=== PATIENT | male | born 1960 | race Hispanic/Latino ===

== ENCOUNTER 2020-04-15 09:46 | Emergency (ER) | payer SELFPAY ==
[2020-04-15] MEDS ORDERED: MECLIZINE HCL 12.5 MG TAB ONE (13:51)
[2020-04-15] MEDS ORDERED: ONDANSETRON 4 MG/2 ML VIAL ONE (13:51)
--- NOTE | 2020-04-15 14:02 | RAD REPORT ---
EXAM DESCRIPTION: CT - Head Brain Wo Cont - 04/15/2020 1:48 pm CLINICAL HISTORY: Dizziness COMPARISON: None. TECHNIQUE: Computed axial tomography of the head was obtained. IV contrast was not requested. All CT scans are performed using dose optimization technique as appropriate and may include automated exposure control or mA/KV adjustment according to patient size. FINDINGS: An intracranial bleed is not seen . The ventricles are normal in caliber. No extra-axial fluid collection is noted. Fluid within the sinuses/ mastoids is not seen. IMPRESSION: No acute intracranial abnormality is seen. If patient's symptoms persist MRI of the bra in would be recommended.
[2020-04-15 14:22] LABS: Absolute Lymphocytes (CBC) 1.2 K/uL (0.7-4.9); Basophils % 0.2 % (0-1.3); Hematocrit 46.2 % (39.6-49.0); Lymphocytes % 11.2 % (15.3-44.8); MPV 10.4 fL (7.6-11.3); RBC Red Blood Cell Count 5.14 M/uL (4.33-5.43)
[2020-04-15 14:25] LABS: Protime INR 0.92
[2020-04-15 14:52] LABS: ALT/SGPT 25 U/L (12-78); AST/SGOT 14 U/L (15-37); Albumin 3.7 g/dL (3.4-5.0); Alkaline Phosphatase 70 U/L (45-117); BUN Blood Urea Nitrogen 14 mg/dL (7-18); Bicarbonate 28 mmol/L (21-32); Bilirubin Direct 0.2 mg/dL (0-0.2); Bilirubin Total 0.6 mg/dL (0.2-1.0); Glucose Level 122 mg/dL (74-106); Magnesium 2.3 mg/dL (1.8-2.4); NT PRO-BNP 69 pg/mL (<125); Protein, Total 7.6 g/dL (6.4-8.2); Sodium Level 136 mmol/L (136-145); Troponin (Emerg Dept Use Only) < 0.02 ng/mL (0.0-0.045)
--- NOTE | 2020-04-15 15:50 | RAD REPORT ---
EXAM DESCRIPTION: RAD - Chest Single View - 04/15/2020 2:26 pm CLINICAL HISTORY: dizziness, hypertension, shortness of COMPARISON: None TECHNIQUE: AP portable chest image was obtained 04/15/2020 2:26 pm . FINDINGS: Lungs are clear. Heart and vasculature are normal. No measurable pleural effusion and no p neumothorax. No acute bony abnormality seen. No acute aortic findings suspected. Metal frames from th e patient's eye glasses overlie the lower left chest. IMPRESSION: No acute cardiopulmonary process.
[2020-04-15 17:21] LABS: Urine Blood NEGATIVE (NEG); Urine Glucose NEGATIVE (NEG); Urine Protein 1+ (NEG); Urine Specific Gravity >1.030 (1.005-1.030)
--- NOTE | 2020-04-15 19:00 | RAD REPORT ---
EXAM DESCRIPTION: MRI - Brain Wo Cont - 04/15/2020 6:45 pm CLINICAL HISTORY: dizziness COMPARISON: Head Brain Wo Cont dated 04/15/2020 TECHNIQUE: Sagittal T1-weighted images were obtained along with axial PD, heavily T2-weighted and T2 -FLAIR images. Axial DWI and ADC mapping sequences were also obtained along with coronal heavily T2-w eighted images. Coronal T2 hemo sequence obtained. FINDINGS: No intracranial acute hemorrhage, mass or acute infarction. There is no edema or shift of midline structures. No extra-axial fluid collections. Villa-matter/white matter junction is preserved. Signal voids are seen as a normal finding in the major intracranial vessels. Small focus of hypoint ense signal midline right frontal lobe on the T2 hemo sequence corresponds to small focus of calcium on the CT study. No sella or supra sella abnormality. No globe or orbital content abnormality seen. No significant atrophy or chronic ischemic changes identified. Mastoid air cells and paranasal sinuses are clear. IMPRESSION: No acute infarction changes seen. No acute intracranial finding identified.
--- NOTE | 2020-04-15 19:17 | EDPHYS ---
Physician Documentation [facility] Name: Elmer Abraham Age: 59 yrs Sex: Male : 1960 Arrival Date: 04/15/2020 Time: 09:49 Bed 24 Private MD: ED Physician Kavin Flaherty HPI: 04/15 13:30 This 59 yrs old Male presents to ER via Wheelchair with complaints of cp Dizziness, Nausea. 13:30 The patient presents with dizziness, sense of spinning. Onset: The symptoms/episode cp began/occurred yesterday. Context: occurred while the patient was sitting up from lying down. just prior to the episode the patient experienced no apparent symptoms. Associated signs and symptoms: Pertinent positives: nausea, vomiting, Pertinent negatives: abdominal pain, chest pain, diaphoresis, focal weakness, near-syncope, numbness, palpitations, syncope. Severity of symptoms: in the emergency department the symptoms have improved mildly. Patient's baseline: Neuro: alert and fully oriented, Motor: no deficits, Ambulation: walks without assistance, Speech: normal. Historical: - Allergies: 11:05 No Known Allergies; ca1 - PMHx: 11:05 Hypertension; ca1 - PSHx: 11:05 Hernia repair; ca1 - Immunization history:: Flu vaccine is not up to date. - Social history:: Smoking status: Patient denies any tobacco usage or history of. ROS: 13:35 Constitutional: Negative for body aches, chills, fever, poor PO intake. cp 13:35 Eyes: Negative for injury, pain, redness, and discharge. cp 13:35 ENT: Negative for ear pain, sinus pain, sore throat, difficulty swallowing, difficulty handling secretions. 13:35 Cardiovascular: Negative for chest pain, edema, palpitations. 13:35 Respiratory: Negative for cough, shortness of breath, wheezing. 13:35 Abdomen/GI: Positive for nausea and vomiting, Negative for abdominal pain, diarrhea, constipation, black/tarry stool, rectal bleeding. 13:35 : Negative for urinary symptoms. 13:35 Neuro: Positive for dizziness, Negative for altered mental status, headache, numbness, syncope, near syncope, weakness. 13:35 All other systems are negative. Exam: 13:38 Constitutional: The patient appears in no acute distress, alert, awake, cp non-diaphoretic, non-toxic, well developed, well nourished. 13:38 Head/Face: Normocephalic, atraumatic. cp 13:38 Eyes: Periorbital structures: appear normal, Pupils: equal, round, and reactive to light and accomodation, Extraocular movements: intact throughout, Conjunctiva: normal, no exudate, no injection, Sclera: no appreciated abnormality, Lids and lashes: appear normal, bilaterally. 13:38 ENT: External ear(s): are unremarkable, Ear canal(s): are normal, clear, TM's: dullness, bilaterally, Nose: is normal, Mouth: Lips: moist, Oral mucosa: moist, Posterior pharynx: is normal, airway is patent, no erythema, no exudate. 13:38 Neck: ROM/movement: is normal, is supple, without pain, no range of motions limitations. 13:38 Chest/axilla: Inspection: normal, Palpation: is normal, no crepitus, no tenderness. 13:38 Cardiovascular: Rate: normal, Rhythm: regular, Heart sounds: murmur, not appreciated, Edema: is not appreciated, JVD: is not appreciated. 13:38 Respiratory: the patient does not display signs of respiratory distress, Respirations: normal, no use of accessory muscles, no retractions, labored breathing, is not present, Breath sounds: are clear throughout, no decreased breath sounds, no stridor, no wheezing. 13:38 Abdomen/GI: Inspection: abdomen appears normal, Palpation: abdomen is soft and non-tender, in all quadrants. 13:38 Back: pain, is absent, ROM is normal. 13:38 Neuro: Orientation: to person, place \T\ time. Mentation: is normal, Cerebellar function: Romberg testing is negative, normal finger to nose testing, heel to mosley testing is normal, Motor: moves all fours, strength is normal, Sensation: no obvious gross deficits. 13:40 ECG was reviewed by the Attending Physician. cp Vital Signs: 11:01 BP 132 / 71; Pulse 76; Resp 16 S; Temp 97.7(TE); Pulse Ox 99% on R/A; Weight 88.45 kg ca1 (R); Height 5 ft. 5 in. (165.10 cm) (R); Pain 0/10; 13:05 BP 130 / 84; Pulse 83; Resp 16; Pulse Ox 100% on R/A; zb 13:52 BP 125 / 83 Supine; Pulse 72; sr5 13:52 BP 139 / 69 Sitting; Pulse 73; sr5 13:52 BP 154 / 69 Standing; Pulse 72; sr5 14:00 BP 130 / 48; Pulse 77; Resp 16; Pulse Ox 99% on R/A; zb 15:00 BP 101 / 55; Pulse 63; Resp 18; Pulse Ox 97% on R/A; zb 16:00 BP 106 / 56; Pulse 66; Resp 17; Pulse Ox 97% on R/A; tw2 17:00 BP 124 / 73; Pulse 68; Resp 16; Pulse Ox 100% on R/A; zb 18:00 BP 118 / 72; Pulse 64; Resp 18; Pulse Ox 98% ; zb 11:01 Body Mass Index 32.45 (88.45 kg, 165.10 cm) ca1 MDM: 13:13 Patient medically screened. cp 14:00 Differential diagnosis: cardiac arrhythmia, CVA, GI bleed, hypovolemia, idiopathic cp dizziness, TIA, vertigo. 19:15 Data reviewed: vital signs, nurses notes, lab test result(s), EKG, radiologic studies, cp CT scan, MRI, plain films. 19:15 Test interpretation: by ED physician or midlevel provider: ECG, plain radiologic cp studies. Counseling: I had a detailed discussion with the patient and/or guardian regarding: the historical points, exam findings, and any diagnostic results supporting the discharge/admit diagnosis, lab results, radiology results. Response to treatment: the patient's symptoms have markedly improved after treatment, VSS. Nausea and dizziness markedly improved with meds. Will discharge to home for continued monitoring. 04/15 13:13 Order name: Basic Metabolic Panel; Complete Time: 16:39 cp 04/15 13:13 Order name: CBC with Diff; Complete Time: 14:27 cp 04/15 14:27 Interpretation: Normal except: WBC 11.00; TAMMY% 85.6; LYM% 11.2; MN% 2.8; NEUT A 9.4. cp 04/15 13:13 Order name: LFT's; Complete Time: 16:39 cp 04/15 13:13 Order name: Magnesium; Complete Time: 16:39 cp 04/15 13:13 Order name: NT PRO-BNP; Complete Time: 16:39 cp 04/15 13:13 Order name: PT-INR; Complete Time: 16:39 cp 04/15 13:13 Order name: Troponin (emerg Dept Use Only); Complete Time: 16:39 cp 04/15 13:13 Order name: XRAY Chest (1 view); Complete Time: 16:39 cp 04/15 13:13 Order name: CT Head Brain wo Cont; Complete Time: 14:27 cp 04/15 14:19 Order name: Urine Dipstick--Ancillary (enter results) bd 04/15 17:21 Order name: Urine Dipstick-Ancillary; Complete Time: 18:38 EDMS 04/15 18:38 Interpretation: Normal except: USPGR >1.030; UPROT 1+. cp 04/15 19:01 Order name: MRI; Complete Time: 19:04 EDMS 04/15 19:05 Interpretation: Report reviewed. cp 04/15 13:13 Order name: EKG; Complete Time: 13:16 cp 04/15 13:13 Order name: Cardiac monitoring; Complete Time: 13:41 cp 04/15 13:13 Order name: EKG - Nurse/Tech; Complete Time: 13:41 cp 04/15 13:13 Order name: IV Saline Lock; Complete Time: 13:24 cp 04/15 13:13 Order name: Labs collected and sent; Complete Time: 13:24 cp 04/15 13:13 Order name: O2 Per Protocol; Complete Time: 13:24 cp 04/15 13:13 Order name: O2 Sat Monitoring; Complete Time: 13:24 cp 04/15 13:13 Order name: Orthostatics; Complete Time: 13:51 cp 04/15 13:13 Order name: Urine Dipstick-Ancillary (obtain specimen); Complete Time: 14:20 cp 04/15 13:57 Order name: Labs - recollect needed: ALL OF THEM!!!; Complete Time: 14:20 iw EC:40 Rate is 69 beats/min. Rhythm is regular. UT interval is normal. QRS interval is normal. cp QT interval is normal. Interpreted by me. Reviewed by me. Administered Medications: 13:41 Drug: Zofran (Ondansetron) 4 mg Route: IVP; Site: right antecubital; zb 14:20 Follow up: Response: No adverse reaction zb 13:42 Drug: Meclizine 25 mg Route: PO; zb 14:20 Follow up: Response: No adverse reaction zb Disposition: 04/16 12:30 Co-signature as Attending Physician, Kavin Flaherty MD. ma2 Disposition: 04/15/20 19:16 Discharged to Home. Impression: Dizziness and giddiness, Nausea. - Condition is Stable. - Discharge Instructions: Dizziness. - Prescriptions for Meclizine 25 mg Oral Tablet - take 1 tablet by ORAL route every 8 hours As needed; 30 tablet. Zofran 4 mg Oral Tablet - take 1 tablet by ORAL route every 12 hours As needed; 20 tablet. - Work release form, Medication Reconciliation Form, Thank You Letter, Antibiotic Education, Prescription Opioid Use form. - Follow up: Zach Garza MD; When: 1 - 2 days; Reason: Recheck today's complaints. - Problem is new. - Symptoms have improved. Signatures: Dispatcher [employer] Caridad Oliveira RN RN iw Mohinder Haas PA PA cp Alzahri, Mohammad, MD MD ma2 Susanna Olivares RN RN ca1 Brown, Zipporah, RN RN [email or web address] Corrections: (The following items were deleted from the chart) 04/15 19:17 19:16 04/15/2020 19:16 Discharged to Home. Impression: Dizziness and giddiness. cp Condition is Stable. Forms are Medication Reconciliation Form, Thank You Letter, Antibiotic Education, Prescription Opioid Use. Follow up: Zach Garza; When: 1 - 2 days; Reason: Recheck today's complaints. Problem is new. Symptoms have improved. cp 19:31 19:17 04/15/2020 19:16 Discharged to Home. Impression: Dizziness and giddiness; Nausea. iw Condition is Stable. Discharge Instructions: Dizziness. Prescriptions for Meclizine 25 mg Oral Tablet - take 1 tablet by ORAL route every 8 hours As needed; 30 tablet, Zofran 4 mg Oral Tablet - take 1 tablet by ORAL route every 12 hours As needed; 20 tablet. and Forms are Medication Reconciliation Form, Thank You Letter, Antibiotic Education, Prescription Opioid Use. Follow up: Zach Garza; When: 1 - 2 days; Reason: Recheck today's complaints. Problem is new. Symptoms have improved. cp
--- NOTE | 2020-04-15 19:17 | ER ---
Nurse's Notes [facility] Name: Elmer Abraham Age: 59 yrs Sex: Male : 1960 Arrival Date: 04/15/2020 Time: 09:49 Bed 24 Private MD: Diagnosis: Dizziness and giddiness;Nausea Presentation: 04/15 11:01 Chief complaint: Patient's son or daughter states: daughter: He called us, he's been ca1 extremely disoriented, nauseous, dizzy spells, he losses his balance when he gets up. 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 Started yesterday in the morning. A\T\Ox4. Coronavirus screen: Client denies travel out of the [place] in the last 14 days. nausea, Client presents with at least one sign or symptom that may indicate coronavirus-19. Standard/surgical mask placed on the client. Provider contacted for isolation considerations. Ebola Screen: Patient negative for fever greater than or equal to 101.5 degrees Fahrenheit, and additional compatible Ebola Virus Disease symptoms Patient denies exposure to infectious person. Patient denies travel to an Ebola-affected area in the 21 days before illness onset. No symptoms or risks identified at this time. Initial Sepsis Screen: Does the patient meet any 2 criteria? No. Patient's initial sepsis screen is negative. Does the patient have a suspected source of infection? No. Patient's initial sepsis screen is negative. Risk Assessment: Do you want to hurt yourself or someone else? Patient reports no desire to harm self or others. Onset of symptoms was April 15, 2020. 11:01 Method Of Arrival: Wheelchair ca1 11:01 Acuity: BRAYAN 3 ca1 Historical: - Allergies: 11:05 No Known Allergies; ca1 - PMHx: 11:05 Hypertension; ca1 - PSHx: 11:05 Hernia repair; ca1 - Immunization history:: Flu vaccine is not up to date. - Social history:: Smoking status: Patient denies any tobacco usage or history of. Screenin:05 Abuse screen: Denies threats or abuse. Denies injuries from another. Nutritional zb screening: No deficits noted. Tuberculosis screening: No symptoms or risk factors identified. Fall Risk No fall in past 12 months (0 pts). No secondary diagnosis (0 pts). IV access (20 points). Ambulatory Aid- None/Bed Rest/Nurse Assist (0 pts). Gait- Weak (10 pts.). Mental Status- Oriented to own ability (0 pts). Total Perez Fall Scale indicates Low Risk Score (25-44 pts). Fall prevention measures have been instituted. Side Rails Up X 2 Placed close to Nursing Station Frequent Obs/Assesments occuring Family Present and informed to notify staff if they need to leave bedside As available Patient and Family Educated on Fall Prevention Program and strategies. Assessment: 13:00 General: Appears in no apparent distress. comfortable, Behavior is calm, cooperative, zb appropriate for age. Pain: Denies pain. Neuro: Level of Consciousness is awake, alert, obeys commands, Oriented to person, place, time, situation, Asic Design Engineer are equal bilaterally Moves all extremities. Gait is unsteady, Speech is normal, Facial symmetry appears normal, Pupils are PERRLA, Intact Reports a syncopal episode weakness. Cardiovascular: Reports lightheadedness, nausea, Denies chest pain. Respiratory: Airway is patent Respiratory effort is even, unlabored, Respiratory pattern is regular, symmetrical. GI: Abdomen is round non-distended, Bowel sounds present X 4 quads. Abd is soft and non tender X 4 quads. : No signs and/or symptoms were reported regarding the genitourinary system. EENT: No signs and/or symptoms were reported regarding the EENT system. Derm: Skin is intact, Skin is dry, Skin is normal. Musculoskeletal: Circulation, motion, and sensation intact. Capillary refill < 3 seconds, in bilateral fingers. Range of motion: intact in all extremities. 14:00 Reassessment: Patient appears in no apparent distress at this time. Patient and/or zb family updated on plan of care and expected duration. Pain level reassessed. Patient is alert, oriented x 3, equal unlabored respirations, skin warm/dry/pink. pt resting lights dimmed. no changes at this time. General:. 15:00 Reassessment: Patient appears in no apparent distress at this time. Patient and/or zb family updated on plan of care and expected duration. Pain level reassessed. Patient is alert, oriented x 3, equal unlabored respirations, skin warm/dry/pink. pt resting, family at bedside awaiting result and more test. 16:00 Reassessment: Patient appears in no apparent distress at this time. Patient and/or zb family updated on plan of care and expected duration. Pain level reassessed. Patient is alert, oriented x 3, equal unlabored respirations, skin warm/dry/pink. no changes at this time. patient and daughter waiting results. patient has been resting in bed. 17:00 Reassessment: Patient appears in no apparent distress at this time. Patient and/or zb family updated on plan of care and expected duration. Pain level reassessed. Patient is alert, oriented x 3, equal unlabored respirations, skin warm/dry/pink. light dimmed patient asleep at this time. 18:00 Reassessment: Patient appears in no apparent distress at this time. Patient and/or zb family updated on plan of care and expected duration. Pain level reassessed. Patient is alert, oriented x 3, equal unlabored respirations, skin warm/dry/pink. pt waiting radiology. Vital Signs: 11:01 BP 132 / 71; Pulse 76; Resp 16 S; Temp 97.7(TE); Pulse Ox 99% on R/A; Weight 88.45 kg ca1 (R); Height 5 ft. 5 in. (165.10 cm) (R); Pain 0/10; 13:05 BP 130 / 84; Pulse 83; Resp 16; Pulse Ox 100% on R/A; zb 13:52 BP 125 / 83 Supine; Pulse 72; sr5 13:52 BP 139 / 69 Sitting; Pulse 73; sr5 13:52 BP 154 / 69 Standing; Pulse 72; sr5 14:00 BP 130 / 48; Pulse 77; Resp 16; Pulse Ox 99% on R/A; zb 15:00 BP 101 / 55; Pulse 63; Resp 18; Pulse Ox 97% on R/A; zb 16:00 BP 106 / 56; Pulse 66; Resp 17; Pulse Ox 97% on R/A; tw2 17:00 BP 124 / 73; Pulse 68; Resp 16; Pulse Ox 100% on R/A; zb 18:00 BP 118 / 72; Pulse 64; Resp 18; Pulse Ox 98% ; zb 11:01 Body Mass Index 32.45 (88.45 kg, 165.10 cm) ca1 ED Course: 09:49 Patient arrived in ED. as 11:04 Triage completed. ca1 11:05 Arm band placed on right wrist. ca1 12:56 Mohinder Haas PA is PHCP. cp 12:56 Kavin Flaherty MD is Attending Physician. cp 12:59 Juani Tucker, RN is Primary Nurse. tw2 13:06 Patient has correct armband on for positive identification. Pulse ox on. NIBP on. Door zb closed. Noise minimized. 13:26 Lenora Summers RN is Primary Nurse. zb 13:26 Inserted saline lock: 20 gauge in right antecubital area, using aseptic technique. zb Blood collected. 13:48 CT Head Brain wo Cont In Process Unspecified. EDMS 14:26 XRAY Chest (1 view) In Process Unspecified. EDMS 18:07 Patient moved to MRI via wheelchair. tw2 19:16 Zach Garza MD is Referral Physician. cp 19:30 No provider procedures requiring assistance completed. IV discontinued, intact, iw bleeding controlled, No redness/swelling at site. Pressure dressing applied. Administered Medications: 13:41 Drug: Zofran (Ondansetron) 4 mg Route: IVP; Site: right antecubital; zb 14:20 Follow up: Response: No adverse reaction zb 13:42 Drug: Meclizine 25 mg Route: PO; zb 14:20 Follow up: Response: No adverse reaction zb Outcome: 19:16 Discharge ordered by MD. cp 19:30 Discharged to home ambulatory, with family. iw 19:30 Condition: good 19:30 Discharge instructions given to patient, family, Instructed on discharge instructions, follow up and referral plans. Demonstrated understanding of instructions, follow-up care, medications, Prescriptions given X 2. 19:31 Patient left the ED. iw Signatures: Dispatcher [employer] Gauri Ha Irene RN RN iw Mohinder Haas PA PA cp Juani Tucker RN RN tw2 Dylon Ibrahim RN RN sr5 Susanna Olivares RN RN ca1 Lenora Summers RN RN zb Corrections: (The following items were deleted from the chart) 17:38 15:30 Reassessment: no changes at this time. patient and daughter waiting results. zb patient has been resting in bed. zb
[2020-04-15 23:03] VITALS: TEMP 97.7
[2020-04-15 23:17] VITALS: BP 118/72; O2SAT 98
--- NOTE | 2020-04-16 12:56 | EKG ---
Test Date: 2020-04-15 Test Time: 13:33:45 Orthotist Prosthetist: KASSIDY MEASUREMENT RESULTS: Intervals: Rate: 69 [place]: 190 QRSD: 92 QT: 392 QTc: 420 [place]: P: 39 NJ: 190 QRS: 94 T: 42 INTERPRETIVE STATEMENTS: Normal sinus rhythm Rightward axis Borderline ECG No previous ECG available for comparison Electronically Signed On 04-16-20 12:53:38 [employer] by Lenny Cantu
== END 2020-04-15 19:31 | disposition home or self-care (01) ==
LOC: ER 09:46
DX: R42 Dizziness and giddiness (principal); R11.0 Nausea
CPT/HCPCS: 36415; 70450; 70551; 71045; 80048; 80076; 81003; 83735; 83880; 84484; 85025; 85610; 93005; 96374; 99284; J2405